=== PATIENT | male | born 1950 | race Caucasian/White ===

== ENCOUNTER 2017-04-15 13:49 | Emergency (ER) | payer BC ==
[2017-04-15 15:17] VITALS: BP 124/85
[2017-04-15] MEDS ORDERED: Rabies VIRUS VACCINE (Imovax)* 2.5 UNIT/ML 1 ML IM ONE (15:22)
[2017-04-15] MEDS ORDERED: Rabies Immune Globulin 10 ML* 150 UNIT/ML VIAL IM ONE (15:26)
--- NOTE | 2017-04-15 17:31 | UC ---
Nicole Arenas Gabriel, scribed for Chris Zhou MD on 04/15/17 at 1456 . Bite Injury/Animal HPI - HPI Summary HPI Summary: This patient is a 66 year old M presenting to [facility] s/p dog bite that occurred on 04-11-17 in [facility]. Patient saw the piece work checker today and they recommend he come get a rabies shot. He has already discussed the vaccination with [facility]. 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 The bite is on the RLE and originally he did not think it broke skin. - History of Current Complaint Stated Complaint: DOG BITE RABIES EXPOSURE Time Seen by Provider: 04/15/17 14:43 Hx Obtained From: Patient Severity Currently: Mild Severity Initially: Mild Pain Intensity: 0 Pain Scale Used: 0-10 Numeric Onset/Duration: Sudden Onset, Still Present Type of Bite: Animal Has Animal Been Immunized?: Unknown Character: Puncture Associated Signs And Symptoms: Negative: Fever, Erythema Animal Available for Observation: No - Allergies/Home Medications Allergies/Adverse Reactions: Allergies Allergy/AdvReac Type Severity Reaction Status Date / Time No Known Allergies Allergy Verified 04/15/17 15:17 Home Medications: Home Medications NK [No Home Medications Reported] 04/15/17 [History Confirmed 04/15/17] PMH/Surg Hx/FS Hx/Imm Hx Previously Healthy: Yes Other History Of: Negative For: Hepatitis B - Surgical History Surgical History: Yes Surgery Procedure, Year, and Place: skin ca removal - Family History Known Family History: Positive: Hypertension Negative: Seizure Disorder - Social History Occupation: Employed Full-time Alcohol Use: Occasionally Substance Use Type: None Smoking Status (MU): Never Smoked Tobacco - Immunization History Most Recent Influenza Vaccination: no Review of Systems Constitutional: Negative - fever Skin: Negative - rash All Other Systems Reviewed And Are Negative: Yes Physical Exam Triage Information Reviewed: Yes Vital Signs: Initial Vital Signs Temp 98.1 F 04/15/17 15:14 Pulse 62 04/15/17 15:14 Resp 18 04/15/17 15:14 BP 124/85 04/15/17 15:14 Pulse Ox 100 04/15/17 15:14 Vital Signs Reviewed: Yes - Additional Comments General: well-appearing, no pain distress Skin: 3 puncture wounds tot the right calf, no erythema Head: normal Eyes: EOMI, [place] ENT: normal Neck: supple, nontender Respiratory: CTA, breath sounds present Cardiovascular: RRR Abdomen: soft, nontender Bowel: present Musculoskeletal: normal, strength/ROM intact Neurological: normal, sensory/motor intact, A&O x3 Psychological: affect/mood appropriate Bite Injury Course/Dx - Course Course Of Treatment: Medications reviewed. BP noted and advised to follow up with PCP. RIG GIVEN AROUND THE RIGHT CALF DOG BITE WOUND BY MYSELF. VACCINE GIVEN BY NURSING LEFT DELTOID. NO ERYTHEMA/STREAKING OR SIGN OF INFECTION AT THE WOUND SITE. WILL F/U WITH [facility]. - Differential Dx/Diagnosis Provider Diagnoses: DOG BITE RIGHT CALF. RABIES POST EXPOSURE PROPHYLAXIS. Elevated blood pressure without history of hypertension. Discharge - Discharge Plan Condition: Stable Disposition: HOME Patient Education Materials: Rabies Vaccine (By injection), Rabies Immune Globulin (By injection), Rabies (ED) Referrals: Karel Hodges MD [Primary Care Provider] - Additional Instructions: FOLLOW UP WITH [facility], [phone]. GET RECHECKED FOR ANY WORSENING OF YOUR CONDITION OR QUESTIONS OR CONCERNS. Your blood pressure was elevated during todays visit; please follow up with your primary care provider within a week for further evaluation. The documentation as recorded by the Nicole vides Gabriel accurately reflects the service I personally performed and the decisions made by me, Chris Zhou MD.
== END 2017-04-15 16:40 | disposition home or self-care (01) ==
LOC: UCEAST 13:49
DX: S81.831A Puncture wound without foreign body, right lower leg, initial encounter (principal); W54.0XXA Bitten by dog, initial encounter; Y93.9 Activity, unspecified; Y92.9 Unspecified place or not applicable; Z23 Encounter for immunization; R03.0 Elevated blood-pressure reading, without diagnosis of hypertension; Z85.828 Personal history of other malignant neoplasm of skin
CPT/HCPCS: 90375; 90471; 99212; G0463